=== PATIENT | female | born 1945 | race Two or more races ===

== ENCOUNTER 2018-10-01 12:15 | Outpatient (CLI) | payer MEDICARE, BC | END 2018-10-01 23:59 | disposition home or self-care (01) | LOC: RAD 12:15 | PROVIDERS: ATTEND Internal Medicine Hematology & Oncology | DX: R51 Headache (principal); S09.90XA Unspecified injury of head, initial encounter; I67.82 Cerebral ischemia; I65.23 Occlusion and stenosis of bilateral carotid arteries; X58.XXXA Exposure to other specified factors, initial encounter; Y93.89 Activity, other specified; Y92.89 Other specified places as the place of occurrence of the external cause; Y99.8 Other external cause status | CPT/HCPCS: 70450-TC ==